=== PATIENT | female | born 1990 | race Caucasian/White ===

== ENCOUNTER 2019-08-28 16:46 | Emergency (ER) | payer BC ==
[2019-08-28 17:15] VITALS: BP 125/80
--- NOTE | 2019-08-28 17:23 | UC ---
Throat Pain/Nasal Angel HPI - HPI Summary HPI Summary: Congestion, cough, nasal drainage, sore throat x 1 wk, feverish 2 days ago, loss of voice. Dizziness at onset of condition but not currently. - History of Current Complaint Chief Complaint: UCGeneralIllness Stated Complaint: SORE THROAT, CONGESTION Time Seen by Provider: 08/28/19 17:04 Hx Obtained From: Patient Hx Last Menstrual Period: 08/26/19-previous menses 2 yrs. ?: No Onset/Duration: Sudden Onset, Lasting Days Severity: Mild Pain Intensity: 1 - Allergies/Home Medications Allergies/Adverse Reactions: Allergies Allergy/AdvReac Type Severity Reaction Status Date / Time No Known Allergies Allergy Verified 08/28/19 17:04 Home Medications: Home Medications Guaifenesin/Pseudoephedrne HCl [Mucinex D ER 600-60 mg Tablet] 1 each PO BID PRN 08/28/19 [History Confirmed 08/28/19] Herbal Supplements 1 tab PO DAILY 08/28/19 [History Confirmed 08/28/19] Loratadine [Claritin 10 MG CAP] 10 mg PO DAILY 08/28/19 [History Confirmed 08/28] PMH/Surg Hx/FS Hx/Imm Hx Previously Healthy: Yes - Surgical History Surgical History: None - Family History Known Family History: Positive: Hypertension - Social History Alcohol Use: Occasionally Substance Use Type: None Smoking Status (MU): Never Smoked Tobacco Review of Systems All Other Systems Reviewed And Are Negative: Yes Constitutional: Positive: Fever ENT: Positive: Sore Throat, Nasal Discharge, Sinus Congestion Respiratory: Positive: Cough Neurological: Positive: Headache Is Patient Immunocompromised?: No Physical Exam Triage Information Reviewed: Yes Appearance: Well-Nourished, Ill-Appearing, Pain Distress Vital Signs: Initial Vital Signs Temp 97.9 F 08/28/19 17:08 Pulse 77 08/28/19 17:08 Resp 16 08/28/19 17:08 BP 125/80 08/28/19 17:08 Pulse Ox 99 08/28/19 17:08 Eye Exam: Normal ENT Exam: Normal ENT: Positive: Pharyngeal erythema, TM bulging, TM red Dental Exam: Normal Neck exam: Normal Respiratory Exam: Normal Respiratory: Positive: Chest non-tender, Lungs clear, Normal breath sounds Cardiovascular Exam: Normal Cardiovascular: Positive: RRR, No Murmur, Pulses Normal Abdominal Exam: Normal Bowel Sounds: Positive: Present Musculoskeletal Exam: Normal Neurological Exam: Normal Psychological Exam: Normal Skin Exam: Normal Throat Pain/Nasal Course/Dx - Course Course Of Treatment: hx obtained, exam performed ,meds reviewed, - Differential Dx/Diagnosis Differential Diagnosis/HQI/PQRI: Pharyngitis, Sinusitis, URI Provider Diagnosis: Sinusitis Discharge ED - Sign-Out/Discharge Documenting (check all that apply): Patient Departure All imaging exams completed and their final reports reviewed: No Studies - Discharge Plan Condition: Stable Disposition: HOME Prescriptions: Azithromyxin EFREM (NF) [Z-Efrem (Zithromax) 250 mg tabs #6] 2 tab PO .TODAY, THEN 1 DAILY #6 tab predniSONE [Prednisone 20 MG TAB] 40 mg PO DAILY #10 tablet Patient Education Materials: Sinusitis (ED) Referrals: No Primary Care Phys,NOPCP [Primary Care Provider] - Additional Instructions: 1. take the medication as prescribed. 2. Increase oral fluids 3. Nasal saline, vicks, warm compresses to help with drainage 4. Salt water gargles to help with the throat. - Billing Disposition and Condition Condition: STABLE Disposition: Home
== END 2019-08-28 17:34 | disposition home or self-care (01) ==
LOC: UCCORT 16:46
DX: J32.9 Chronic sinusitis, unspecified (principal); R05 Cough; J02.9 Acute pharyngitis, unspecified
CPT/HCPCS: 99202; G0463